=== PATIENT | female | born 1975 | race Caucasian/White ===

== ENCOUNTER 2017-04-23 10:05 | Inpatient (IN) | payer MEDICAID, OTHER ==
[~2017-04-23] VITALS: Ht 157.5 cm; Wt 64.0 kg
--- NOTE | 2017-04-23 12:08 | ERD ---
ER Documentation Chief Complaint Date/Time DATE: 04/23/17 TIME: 12:03 Chief Complaint left lower ap w/ nausea x 3 days; intermittent fevelr (JUDYJUANJOCAROLINAKALEIGH Tj) HPI 42-year-old female who presents emergency department for left lower abdominal pain started 3 days ago but got worse today. Associated but no vomiting. Also complains of fever at home but did not take her temperature. Denies headache, dizziness, blurred vision, neck pain, shoulder pain, chest pain , back pain, vomiting, diarrhea, constipation, urinary symptoms, , possibility of being , recent travel, recent exposure to illness, recent antibiotic use in the last 3 months. No known drug allergies. Past medical history: None. Surgical history of 2. Medications: Robitussin. 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 Denies smoking, use of alcohol, use of illegal drugs. LMP was 3 weeks ago. A0. (LUCIEN VARGAS F) ROS All systems reviewed and are negative except as per history of present illness. (LUCIEN VARGAS F) Medications Home Meds Active Scripts Cephalexin* (Keflex*) 500 Mg Capsule, 500 MG PO QID for 5 Days, CAP Prov:ROCIOAAMIRBANCAROLINAAR F 04/23/17 Tramadol HCl (Tramadol HCl) 50 Mg Tablet, 50 MG PO Q4 Y for PAIN, #20 TAB Prov:PASILABANCAROLINAAR F 04/23/17 Acetaminophen* (Tylophen*) 500 Mg Capsule, 1 CAP PO Q6H Y for PAIN AND OR ELEVATED TEMP, #20 CAP Prov:LUCIEN VARGAS F 04/23/17 Ondansetron Hcl* (Zofran*) 4 Mg Tablet, 4 MG PO Q8H Y for NAUSEA AND/OR VOMITING , #30 TAB Prov:CAROLINA VARGASAR F 04/23/17 Ibuprofen* (Motrin*) 800 Mg Tab, 800 MG PO Q6H Y for PAIN AND OR ELEVATED TEMP, #20 TAB Prov:ROCIOILABANCAROLINAAR F 04/23/17 Allergies Allergies: Coded Allergies: No Known Allergy (Unverified , 04/23/17) Physical Exam Vitals Vital Signs Date Time Temp Pulse Resp B/P Pulse Ox O2 Delivery O2 Flow Rate FiO2 04/23/17 18:35 98.6 82 18 105/53 100 Room Air 04/23/17 10:44 98.7 90 18 117/58 100 (ADRIANA LEPE MD) Physical Exam Const: [] Head: Atraumatic Eyes: Normal Conjunctiva ENT: Normal External Ears, Nose and Mouth. Neck: Full range of motion..~ No meningismus. Resp: Clear to auscultation bilaterally Cardio: Regular rate and rhythm, no murmurs Abd: Soft, non distended. Normal bowel sounds. Has right lower abdominal tenderness and light and deep palpation. Unable to jump due to right-sided abdominal pain. Has difficulty walking due to abdominal pain. Skin: No petechiae or rashes Back: No midline or flank tenderness Ext: No cyanosis, or edema Neur: Awake and alert Psych: Normal Mood and Affect (LUCIEN VARGAS) Result Diagram: 04/23/17 1255 04/23/17 1255 Results 24 hrs Laboratory Tests Test 04/23/17 12:55 White Blood Count 18.910^3/ul Red Blood Count 4.4810^6/ul Hemoglobin 13.1g/dl Hematocrit 41.1% Mean Corpuscular Volume 91.7fl Mean Corpuscular Hemoglobin 29.2pg Mean Corpuscular Hemoglobin Concent 31.9g/dl Red Cell Distribution Width 12.9% Platelet Count 11996^3/UL Mean Platelet Volume 9.7fl Neutrophils % 86.8% Lymphocytes % 8.3% Monocytes % 4.1% Eosinophils % 0.0% Basophils % 0.2% Nucleated Red Blood Cells % 0.0/100WBC Neutrophils # (Manual) 16.410^3/ul Lymphocytes # 1.610^3/ul Monocytes # 0.810^3/ul Eosinophils # 0.010^3/ul Basophils # 0.010^3/ul Nucleated Red Blood Cells # 0.010^3/ul Prothrombin Time 13.6Sec Prothrombin Time Ratio 1.1 INR International Normalized Ratio 1.04 Activated Partial Thromboplast Time 35.4Sec Urine Color YELLOW Urine Clarity SLIGHTLY CLOUDY Urine pH 7.0 Urine Specific [place] 1.017 Urine Ketones 1+mg/dL Urine Nitrite NEGATIVEmg/dL Urine Bilirubin NEGATIVEmg/dL Urine Urobilinogen 2+mg/dL Urine Leukocyte Esterase 1+To/ul Urine Microscopic RBC 2/HPF Urine Microscopic WBC 17/HPF Urine Squamous Epithelial Cells FEW/HPF Urine Hemoglobin 2+mg/dL Urine Glucose NEGATIVEmg/dL Urine Total Protein 1+mg/dl Sodium Level 137mmol/L Potassium Level 3.8mmol/L Chloride Level 103mmol/L Carbon Dioxide Level 22mmol/L Anion Gap 16 Blood Urea Nitrogen 6mg/dl Creatinine 0.71mg/dl Glucose Level 128mg/dl Calcium Level 9.5mg/dl Total Bilirubin 0.8mg/dl Direct Bilirubin 0.00mg/dl Indirect Bilirubin 0.8mg/dl Aspartate Amino Transf (AST/SGOT) 17IU/L Alanine Aminotransferase (ALT/SGPT) 23IU/L Alkaline Phosphatase 99IU/L Total Protein 8.6g/dl Albumin 4.4g/dl Globulin 4.20g/dl Albumin/Globulin Ratio 1.04 Amylase Level 92U/L Lipase 44U/L Serum HCG, Qualitative NEGATIVE Current Medications Medications (Trade) Dose Ordered Sig/David Route PRN Reason Start Time Stop Time Status Last Admin Dose Admin Ondansetron HCl (Zofran Inj) 4 mg ONCE STAT IV 04/23/17 12:11 04/23/17 12:13 DC 04/23/17 13:11 Ketorolac Tromethamine 30 mg 30 mg ONCE STAT IV 04/23/17 12:11 04/23/17 12:13 DC 04/23/17 13:12 Sodium Chloride 500 ml @ 500 mls/hr Q1H ONCE IV 04/23/17 12:30 04/23/17 13:29 DC 04/23/17 13:11 Sodium Chloride 500 ml @ 500 mls/hr Q1H ONCE IV 04/23/17 14:00 04/23/17 14:59 DC 04/23/17 14:00 Ceftriaxone Sodium (Rocephin) 50 ml @ 100 mls/hr ONCE ONCE IVPB 04/23/17 14:00 04/23/17 14:29 DC 04/23/17 14:00 IV Flush 10 ml 10 ml STK-MED ONCE .ROUTE 04/23/17 14:16 04/23/17 14:17 DC Sodium Chloride (NS) 100 ml @ ud STK-MED ONCE .ROUTE 04/23/17 14:16 04/23/17 14:17 DC Iohexol (Omnipaque 300mg/ ml) 150 ml STK-MED ONCE .ROUTE 04/23/17 14:16 04/23/17 14:17 DC Morphine Sulfate (morphine) 4 mg ONCE STAT IV 04/23/17 18:06 04/23/17 18:07 DC 04/23/17 18:39 Ondansetron HCl (Zofran Inj) 4 mg BRIDGE ORDER PRN IV NAUSEA AND/OR VOMITING 04/23/17 23:30 04/24/17 23:29 Acetaminophen (Tylenol Tab) 650 mg ER BRIDGE PRN PO MILD PAIN/FEVER 04/23/17 23:30 04/24/17 23:29 (ADRIANA LEPE MD) Procedures/MDM Examination: Please see physical examination. Disease process was explained to the patient and family member. They both agreed with the diagnostic test, treatment, plan of care. Treatment: IV insertion. Normal saline IV bolus. Zofran IV. Toradol IV. Morphine IV. Ceftriaxone IV. CT of the abdomen and pelvis with IV contrast: Impression: Multicystic left adnexal structure as noted above. Further evaluation with a pelvic ultrasound is recommended. Trace amount of free fluid in the pelvis which may be physiologic. Intrauterine device identified. Pelvic ultrasound Impression: The left ovary is not definitely identified although there is a 6.9 cm multiseptated lesion in the left adnexa with thickened vascular septations which correlates with a similarly sized lesion seen in the left adnexa on the CT study from the same date. Lesions of the sinuses are incompletely evaluated with ultrasound. An MRI of the pelvis without and with intravenous contrast is recommended for further evaluation. The right ovary is unremarkable. Appropriate position intrauterine device is noted. Urinalysis: Reviewed. Blood works: Leukocytosis. Differential diagnosis: Appendicitis versus cholecystitis versus pancreatitis versus diverticulitis versus nephrolithiasis versus pyelonephritis versus urinary tract infection Medical decision makin-year-old female who presents emergency department for left lower abdominal pain started 3 days ago but got worse today. Associated but no vomiting. Also complains of fever at home but did not take her temperature. Patient's complaint, patient's history about her complaint, my physical findings, diagnostic test results, reevaluation, consultation with supervising physician are consistent with my final diagnosis of ovarian cyst/ mass with unknown etiology. Medications prescribed are the following: Tramadol. Motrin. Tylenol. Zofran. Keflex. Patient and family member are made aware of the side effects and adverse reactions of the medications prescribed. Instructed on when to seek emergent and medical attention in case allergic/anaphylactic reactions or severe side effects and or adverse reactions to medications. Patient and family member verbalized understanding. Patient instructed Instructed to follow-up with his PCP in 24-48 hours. PCP to refer patient to clin nurse in the next 24-48 hours Instructed to Call 911 for chest pain, shortness of breath. Advised to come back here in ED as soon as possible for severity of symptoms which includes but not limited to: any new symptoms; shortness of breath/difficulty of breathing; cardiovascular changes; severe gastrointestinal symptoms; signs and symptoms of bleeding and or infection; signs of compartment syndrome/neurovascular changes; neurological changes/deficits. Patient and family member verbalized understanding. Upon discharge, patient is alert and oriented x 4, speaks full and clear sentences, denies pain, has no neurological deficits, has no neurovascular deficits, difficulty of breathing. Breathing even and unlabored. Lung sounds are clear to auscultation. Not in distress. Appears comfortable. Ambulatory with steady gait. Appears satisfied with care provided here in ED. (LUCIEN VARGAS) Patient seen in consultation for mid-level and agree with history and physical examination. Patient has a prolonged ED course for abnormalities noted on ultrasound and CT scan for possible ovarian cystic lesion of uncertain etiology associated with leukocytosis. MRI of the pelvis shows likely hydrosalpinx and IUD in the fundus. [facility] was consulted. Dr. Houston presented for evaluation of the patient at bedside. He suggested that the hydrosalpinx noted on MRI likely due to prolonged use of IUD which is been over 10 years. He is unable to locate the IUD string. Patient was given Rocephin IV. Patient will be admitted to [facility] for presumed operative removal of IUD and treatment of hydrosalpinx. Patient was stable throughout ED course.Cultures for gonorrhea and chlamydia pending. (ADRIANA LEPE MD) Departure Diagnosis: Primary Impression: Abdominal pain Additional Impressions: Lesion of ovary Hydrosalpinx PID (acute pelvic inflammatory disease) Condition: Stable LUCIEN VARGAS Apr 23, 2017 12:07 ADRIANA LEPE MD Apr 23, 2017 23:37
[2017-04-23] MEDS ORDERED: ONDANSETRON 4 MG INJ IV STA (12:11)
[2017-04-23] MEDS ORDERED: KETOROLAC 30 MG INJ IV STA (12:11)
[2017-04-23] MEDS ORDERED: SOD CHLORIDE 0.9% 500 ML IV ONE ×2 (12:30→14:00)
[2017-04-23 13:08] LABS: BASOPHILS % 0.2 % (0.0-2.0); HEMATOCRIT 41.1 % (37.0-47.0); HEMOGLOBIN 13.1 g/dl (12.0-16.0); LYMPHOCYTES # 1.6 10^3/ul (0.8-2.9); LYMPHOCYTES % 8.3 % (15.0-51.0); MEAN CORPUSCULAR HEMOGLOBIN 29.2 pg (29.0-33.0); MEAN CORPUSCULAR HGB CONC 31.9 g/dl (32.0-37.0); MEAN CORPUSCULAR VOLUME 91.7 fl (82.0-101.0); MEAN PLATELET VOLUME 9.7 fl (7.4-10.4); MONOCYTE # 0.8 10^3/ul (0.3-0.9); MONOCYTES % 4.1 % (0.0-11.0); NEUTROPHILS % 86.8 % (39.0-77.0); PLATELET COUNT 300 10^3/UL (140-415); RED BLOOD COUNT 4.48 10^6/ul (4.20-5.40); RED CELL DISTRIBUTION WIDTH 12.9 % (11.5-14.5); WHITE BLOOD COUNT 18.9 10^3/ul (4.8-10.8)
[2017-04-23 13:15] LABS: ADD UMIC YES; UR ASCORBIC ACID NEGATIVE (NEGATIVE); UR BILIRUBIN (Dip) NEGATIVE (NEGATIVE); UR BLOOD (Dip) 2+ mg/dL (NEGATIVE); UR CLARITY SLIGHTLY CLOUDY (CLEAR); UR COLOR YELLOW (YELLOW); UR GLUCOSE (Dip) NEGATIVE (NEGATIVE); UR KETONES (Dip) 1+ mg/dL (NEGATIVE); UR LEUKOCYTE ESTERASE (Dip) 1+ Leu/ul (NEGATIVE); UR NITRITE (Dip) NEGATIVE (NEGATIVE); UR RBC 2 /HPF (0-5); UR SPECIFIC GRAVITY (Dip) 1.017 (1.003-1.030); UR SQUAMOUS EPITHELIAL CELL FEW /HPF (FEW); UR TOTAL PROTEIN (Dip) 1+ mg/dl (NEGATIVE); UR UROBILINOGEN (Dip) 2+ mg/dL (NEGATIVE)
[2017-04-23 13:24] LABS: INR 1.04; PROTIME 13.6 Sec (12.2-14.2); PT RATIO 1.1
[2017-04-23 13:25] LABS: PARTIAL THROMBOPLASTIN TIME 35.4 Sec (25.0-35.0)
[2017-04-23 13:27] LABS: ALBUMIN 4.4 g/dl (3.3-4.9); ALBUMIN/GLOBULIN RATIO 1.04; BILIRUBIN,INDIRECT 0.8 mg/dl (0-1.1); BILIRUBIN,TOTAL 0.8 mg/dl (0.2-1.3); CALCIUM 9.5 mg/dl (8.4-10.2); CREATININE 0.71 mg/dl (0.44-1.00); POTASSIUM 3.8 mmol/L (3.5-5.1); TOTAL PROTEIN 8.6 g/dl (6.1-8.1)
[2017-04-23] MEDS ORDERED: CEFTRIAXONE 1 GM/50 ML (PMX) 50 ML IVPB ONE (14:00)
[2017-04-23] MEDS ORDERED: SOD CHLORIDE 0.9% 100 ML ONE (14:16)
[2017-04-23] MEDS ORDERED: IOHEXOL 300MG/ML 150 ML BTL ONE (14:16)
--- NOTE | 2017-04-23 15:13 | RADRPT ---
PROCEDURE: CT of the abdomen and pelvis CLINICAL INDICATION: Abdominal pain TECHNIQUE: The study was performed utilizing a [employer]peed 64-slice multidetector CT scanner. Dir ect spiral axial sections were obtained through the abdomen and pelvis with intravenous contrast. Af ter administration of 100cc of Omnipaque-300, postcontrast images were obtained. Coronal and sagitt al reformatted images were performed. The CTDI vol is 8.42 mGy and the DLP is 425.65 mGy-cm. The im ages were reviewed on a PACS workstation. One or more of the following dose reduction techniques were used: Automated exposure control. Adjustment of the mA and/or kV according to patient size. - Use of iterative reconstruction technique. COMPARISON: No prior studies are available for comparison. FINDINGS: CT abdomen: The lung bases are clear. The heart is not enlarged. No pericardial effusion is seen. The liver is normal in size and contour. No focal liver lesions or intrahepatic biliary dilatation is seen. The gallbladder is normal. No common bile duct dilatation is seen. The spleen, pancreas, a nd adrenal glands are unremarkable in appearance. The kidneys are normal in size and contour enhance normally. No evidence of hydronephrosis or nephrolithiasis is seen. The stomach is unremarkable. The small and large bowel are unremarkable in course and caliber. A n ormal appendix is identified. No enlarged lymph nodes or fluid collections are seen. The aorta is n ormal in caliber. CT pelvis: No pelvic mass, adenopathy, or focal fluid collection is seen. There is a trace amount of free fluid. The urinary bladder is normal. A intrauterine device is identified. A multicystic le ft adnexal structure is seen measuring approximately 4.2 x 5.1 x 2.7 cm in size. No osseous lesions are seen. IMPRESSION: 1. Multicystic left adnexal structure as noted above. Further evaluation with a pelvic ultrasound i s recommended. 2. Trace amount of free fluid in the pelvis which may be physiologic. 3. Intrauterine device identified. RPTAT: HPNM Physician Zohreh Date Time Electronically viewed and signed by Physician Zohreh on 04/23/2017 15:13 /
--- NOTE | 2017-04-23 16:29 | RADRPT ---
PROCEDURE: US Pelvis CLINICAL INDICATION: Pelvic pain TECHNIQUE: Multiple sonographic images of the pelvis were obtained utilizing a transabdominal and endovaginal technique. The images were reviewed on a PACS workstation. COMPARISON: CT abdomen/pelvis from the same date LMP: 04/09/2017 FINDINGS: The uterus measures 10.5 x 4.3 x 4.6 cm. The endometrial echo complex measures 8 mm in thickness. Several sub-centimeter Nabothian cysts are identified. An appropriately positioned intrauterine jet ce is noted. The right ovary measures 3.8 x 2.3 x 2.8 cm. There is normal vascular flow in the right ovary. The left ovary is not definitively identified although there is a 6.9 x 3.9 x 3.6 cm multi septated lesion in the left adnexa. Thickened septations are noted within it measuring up to 4 mm. Prominent vascular flow is noted in the septations. No significant pelvic free fluid is identified. IMPRESSION: The left ovary is not definitively identified although there is a 6.9 cm multi septated lesion in th e left adnexa with thickened vascular septations which correlates with the similarly sized lesions s een in the left adnexa on the CT study from the same date. Lesions of this size are incompletely john luated with ultrasound. An MRI of the pelvis without and with intravenous contrast is recommended fo r further evaluation. The right ovary is unremarkable. An appropriately positioned intrauterine device is noted. RPTAT: EE Physician Yeyo Date Time Electronically viewed and signed by Physician Yeyo on 04/23/2017 16:29 /
[2017-04-23] MEDS ORDERED: morphine 4 MG/ML VIAL IV STA (18:06)
[2017-04-23] MEDS ORDERED: IBUP800T25 PO (18:26)
[2017-04-23] MEDS ORDERED: ACET500C5 PO (18:26)
[2017-04-23] MEDS ORDERED: ONDA4TAB8 PO (18:26)
[2017-04-23] MEDS ORDERED: TRAM50TA2 PO (18:27)
[2017-04-23] MEDS ORDERED: CEPH-443 PO (18:27)
[2017-04-23 18:35] VITALS: TEMP 98.6
--- NOTE | 2017-04-23 22:03 | RADRPT ---
PROCEDURE: MR pelvis with and without contrast CLINICAL INDICATION: Pelvic pain/abdominal pain, history of 2 sections TECHNIQUE: MRI of the pelvis with and without contrast was performed. 10 cc of Magnevist was injec mango intravenously. COMPARISON: Pelvic ultrasound and CT abdomen and pelvis of 04/23/2017 FINDINGS: Uterus measures 10.9 x 5.4 x 4.7 cm. Nabothian cysts in the cervix. Intrauterine device in endometri um in the fundus and body. There are 2 oval areas of decreased T2 signal consistent with fibroids th e larger a 1.2 cm intramural fibroid in the posterior fundus. Immediately medial to the left ovary i s an approximate 7.7 x 3.6 x 3.6 cm dilated tubular appearing fluid signal structure which appears t o most likely represent a hydrosalpinx. The left ovary measures 3.8 x 2.3 x 1.8 cm and appears to be unremarkable. The right ovary is unremarkable and measures approximately 4.5 x 2.2 x 2.4 cm. There is a small amount of free fluid in cul-de-sac. IMPRESSION: Dilated tubular appearing fluid density structure in left adnexal region thought to most likely repr esent a hydrosalpinx. Intrauterine device in endometrium in the fundus and body of the uterus. Consi stent with 2 small uterine fibroids. Small amount of free fluid in cul-de-sac. Please see above. RPTAT: HJES .Raji Strong MD, Date Time Electronically viewed and signed by .Raji Strong MD, on 04/23/2017 22:02 .S/
[2017-04-23] MEDS ORDERED: ACETAMINOPHEN 325 MG TAB PO PRN (23:30)
[2017-04-23] MEDS ORDERED: ONDANSETRON 4 MG INJ IV PRN (23:30)
--- NOTE | 2017-04-23 23:34 | HP ---
Date/Time of Note Date/Time of Note DATE: 04/23/17 TIME: 23:26 Assessment/Plan VTE Prophylaxis VTE Prophylaxis Intervention: ambulation Lines/Catheters IV Catheter Type (from Nrs): Peripheral IV Assessment/Plan Chief Complaint/Hosp Course pelvic pain IUD x 11 years Problems: Assessment/Plan PID Hydrosalpinx Admit IV antibiotics HPI/ROS Admit Date/Time Admit Date/Time Hx of Present Illness 42 y/o LMP 2 weeks prior to admission with c/o 3 day h/o LLQ pain associated with vaginal discharge. ROS Constitutional: febrile ENT: no complaints Respiratory: no complaints Cardiovascular: no complaints Gastrointestinal: no complaints Genitourinary: discharge Musculoskeletal: no complaints Skin: no complaints Neurologic: no complaints Endocrine: no complaints Lymphatic: no complaints Psychological: nl mood/affect, no complaints Immunologic: no complaints PMH/Family/Social Past Medical History Medical History: no pertinent history Past Surgical History Past Surgical Hx: other (c/s x2) Family History Significant Family History: diabetes Social History Alcohol Use: none Drug Use: none Exam/Review of Systems Vital Signs Vitals Vital Signs Date Time Temp Pulse Resp B/P Pulse Ox O2 Delivery O2 Flow Rate FiO2 04/23/17 18:35 98.6 82 18 105/53 100 Room Air Exam Constitutional: alert Psych: no complaints Head: atraumatic, normocephalic Eyes: EOMI, PERRL, nl conjunctiva, nl lids, nl sclera ENMT: nl external ears & nose, nl lips & teeth, nl nasal mucosa & septum Neck: non-tender, supple Respiratory: clear to auscultation, normal air movement Cardiovascular: nl pulses, regular rate and rhythm Gastrointestinal: nl liver, spleen, non-tender, soft Genitourinary - Female: CMT, nl external genitalia Musculoskeletal: nl extremities to inspection Extremities: normal pulses Neurological: ASSISTANCE COORDINATOR II-XII intact, nl mental status, nl speech, nl strength Skin: nl turgor, No rash or lesions Lymph: nl lymph nodes Labs Result Diagram: 04/23/17 1255 04/23/17 1255 STERLING LIMON MD Apr 23, 2017 23:34
[2017-04-24 01:26] VITALS: Ht 157.5 cm; Wt 64.0 kg
[2017-04-24 01:34] VITALS: BP 106/59; PULSE 96; RESP 18
[2017-04-24] MEDS: SOD CHLORIDE 0.9% 1,000 ML IV SCH ×3 (02:05→18:23)
[2017-04-24 08:22] VITALS: BP 107/54; RESP 17
[2017-04-24] MEDS: DOXYCYCLINE 100 MG TAB PO SCH ×2 (08:38→20:43)
[2017-04-24] MEDS: metroNIDAZOLE 500 MG TAB PO SCH ×2 (08:39→20:43)
[2017-04-24] MEDS ORDERED: CEFTRIAXONE 1 GM/50 ML (PMX) 50 ML IVPB SCH (09:00)
[2017-04-24] MEDS: morphine 2 MG INJ IV PRN ×2 (10:52→18:30)
[2017-04-24 13:49] VITALS: BP 124/61; RESP 18
[2017-04-24 15:18] LABS: BASOPHILS % 0.2 % (0.0-2.0); EOSINOPHILS # 0.1 10^3/ul (0.0-0.5); EOSINOPHILS % 0.4 % (0.0-7.0); HEMATOCRIT 35.8 % (37.0-47.0); HEMOGLOBIN 11.9 g/dl (12.0-16.0); LYMPHOCYTES # 1.4 10^3/ul (0.8-2.9); MEAN CORPUSCULAR HEMOGLOBIN 30.8 pg (29.0-33.0); MEAN CORPUSCULAR HGB CONC 33.2 g/dl (32.0-37.0); MEAN CORPUSCULAR VOLUME 92.7 fl (82.0-101.0); MEAN PLATELET VOLUME 9.6 fl (7.4-10.4); MONOCYTES % 5.4 % (0.0-11.0); NEUTROPHILS % 85.4 % (39.0-77.0); PLATELET COUNT 272 10^3/UL (140-415); RED BLOOD COUNT 3.86 10^6/ul (4.20-5.40); RED CELL DISTRIBUTION WIDTH 12.4 % (11.5-14.5); WHITE BLOOD COUNT 17.5 10^3/ul (4.8-10.8)
--- NOTE | 2017-04-24 20:32 | PN ---
Date/Time of Note Date/Time of Note DATE: 04/24/17 TIME: 20:17 OB Subjective Subjective Subjective Denies any fever or chills. Feels improvement of her symptoms. has good apetite.Has not been eating yet,. Has appetite. Patient reports had her ParaGard IUD was placed about 10 years ago at [facility] Per history symptoms started with lower abdominal pain 3 days ago and low-grade fever, worsened yesterday when she presented to the hospital. Patient apparently had a trial of IUD removal by Dr. Houston yesterday that was unsuccessful. OB Objective Objective Objective Gait: Alert and oriented 4 does not appear to be in any acute distress. Abdomen: Soft, moderate tenderness in the left lower abdomen. Slight rebound tenderness in the left lower however the abdomen is soft and no evidence of guarding or rigidity or acute abdomen. Extremities: No calf tenderness, no click no edema Pelvix examination performed: The speculum examination there is moderate amount of yellow/green tinged vaginal discharge Culture obtained IUD string was not visible. Cervix appears to be normal without any abnormal lesion Bimaanual examination: This appears to be normal size there is tenderness in the left adnexa. Right adnexa nontender. No cervical motion tenderness noted Attempted to remove IUD after placing the speculum and cleansing the cervix using Betadine. a tenaculum was placed on the anterior lip of the cervix and it was grasped and with gentle pulling, Using a long bandage forceps gently passed through the external cervical os, could easily grab the IUD and was pulled gently and easily removed intact Slight from the IUD for actinomyces obtained and IUD was sent to the lab for culture for actinomycosis This is a send out She tolerated the procedure well Speculum was removed There was no bleeding from tenaculum site OB Assessment/Plan Other Assessment: Hospital day #1 Admitted for lower abdominal pain and left-sided multiseptated adnexal mass likely hydrosalpinx based on CT and ultrasound finding Increased vaginal discharge, consistent with PID Vaginal culture obtained Currently on ceftriaxone and doxycycline and Flagyl, mild Improvement of symptoms Retained IUD for 11 years. Smear of IUD and culture for actinomycosis ordered Antibiotics switched to ampicillin sulbactam, will continue doxycycline and Flagyl. 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 Needs to have a follow-up of culture. If confirmed actinomycosis may need additional treatment with penicillin as well as ID consultation, as well as follow-up imaging for confirm resolution of the left adnexal multicystic septated cyst it appears to be multiseptated cyst or hydrosalpinx based on imaging. Continue to follow while in the hospital If symptoms does not improve within 24-48 hours recommend ID consultation while the patient in the hospital and possible drainage of abscess. CARLOS RUBY MD Apr 24, 2017 20:32 CARLOS RUBY MD Apr 24, 2017 20:32
[2017-04-24 20:33] VITALS: BP 121/58; RESP 17
[2017-04-24] MEDS: AMPICILLIN/SULB 3 GM/NS (PMX) 100 ML IVPB SCH (20:41)
[2017-04-24 20:45] VITALS: BP 112/62; PULSE 90
[2017-04-25] VITALS (15 sets, daily range): BP systolic 90–144; BP diastolic 50–68; PULSE 76–133; RESP 17–22
[2017-04-25] MEDS: AMPICILLIN/SULB 3 GM/NS (PMX) 100 ML IVPB SCH (01:13)
[2017-04-25] MEDS: SOD CHLORIDE 0.9% 1,000 ML IV SCH ×4 (02:19→21:55)
[2017-04-25] MEDS ORDERED: LORAZEPAM 2 MG INJ ONE (03:01)
[2017-04-25] MEDS ORDERED: VANCOMYCIN 1 GM (PMX) 250 ML ONE (03:04)
[2017-04-25] MEDS ORDERED: LORAZEPAM 2 MG INJ IV ONE (03:06)
[2017-04-25] MEDS ORDERED: VANCOMYCIN 1 GM (PMX) 250 ML IVPB ONE (03:07)
[2017-04-25] MEDS: morphine 2 MG INJ IV PRN (04:02)
[2017-04-25] MEDS: ACETAMINOPHEN 325 MG TAB PO PRN ×2 (04:37→21:54)
--- NOTE | 2017-04-25 04:49 | RADRPT ---
PROCEDURE: US Pelvis. CLINICAL INDICATION: Pelvic pain, evaluate for abscess. LMP 04/09/2017 . IUD removed. TECHNIQUE: Multiple sonographic images of the pelvis were obtained utilizing a transabdominal and endovaginal technique. The images were reviewed on a PACS workstation. COMPARISON: 04/23/2017 FINDINGS: The uterus is visualized and measures 11.7 x 3.8 x 5.8 cm. The endometrial echo complex is normal a nd measures 4.1 mm. Intrauterine device is no longer present. There is no evidence for free fluid. T he right ovary measures 4.7 x 1.9 x 2.7 cm. There are multiple follicles in the right ovary. Normal Doppler flow is visualized in the right ovary. Enlarged left ovary with multiple cysts or complex c ystic adnexal mass is again demonstrated measuring 8.7 x 4.6 x 4.9 cm. Increased arterial venous julia w is demonstrated. IMPRESSION: Interval removal of the IUD. 8.7 cm complex cystic left adnexal mass or enlarged ovary with multiple cysts. Follow-up recommended . Physician Isaias Date Time Electronically viewed and signed by Physician Isaias on 04/25/2017 04:49 CS/
[2017-04-25] MEDS: metroNIDAZOLE 500 MG TAB PO SCH ×2 (08:50→20:29)
[2017-04-25] MEDS: DOXYCYCLINE 100 MG TAB PO SCH ×2 (08:50→20:29)
[2017-04-25] MEDS: MEROPENEM 500MG/50 ML (PMX) 50 ML IVPB SCH ×3 (08:51→21:54)
--- NOTE | 2017-04-25 18:28 | QN ---
Documentation Comment pt feeling better temp spike of 102 overnight no fevers since then exam wnl no ttp no gaurding a/p hydrosalpinx- but with fever over night- discussed case with dr galdamez who did not recommend drainage. will continue with IV abx since IUD is out and pt overall is improving RASHIDA HERNANDEZ MD Apr 25, 2017 18:28
[2017-04-26] VITALS (12 sets, daily range): BP systolic 103–126; BP diastolic 54–77; PULSE 77–97; RESP 15–18
[2017-04-26] MEDS: MEROPENEM 500MG/50 ML (PMX) 50 ML IVPB SCH ×3 (05:36→22:16)
[2017-04-26] MEDS: ACETAMINOPHEN 325 MG TAB PO PRN ×2 (05:36→20:11)
[2017-04-26] MEDS: metroNIDAZOLE 500 MG TAB PO SCH ×2 (09:43→20:11)
[2017-04-26] MEDS: DOXYCYCLINE 100 MG TAB PO SCH ×2 (09:43→20:11)
[2017-04-26] MEDS: SOD CHLORIDE 0.9% 1,000 ML IV SCH (09:44)
--- NOTE | 2017-04-26 13:13 | QN ---
Documentation Comment patient is seen at the bedside,Overall improving currently afebril VS stable Gen NAD abd soft NT ND Genitalai defeered --->close Observation --->continue Antibiotics KHADIJAH NAVAS M.D. Apr 26, 2017 13:13
[2017-04-27] VITALS (12 sets, daily range): BP systolic 105–125; BP diastolic 55–72; PULSE 69–104; RESP 15–20
[2017-04-27] MEDS: MEROPENEM 500MG/50 ML (PMX) 50 ML IVPB SCH ×3 (05:30→21:11)
--- NOTE | 2017-04-27 07:48 | QN ---
Documentation Comment #5 42 yo with left hydrosalpinx s/p IUD removal patient had a temp 102 yesterday she is currently on IV ABX WBC today 12.5 Abd soft NT/ND Ext NT A/P continue with ABX until afebrile for 48hrs RICARDO GUAMAN MD Apr 27, 2017 07:48
[2017-04-27] MEDS: DOXYCYCLINE 100 MG TAB PO SCH ×2 (09:50→21:11)
[2017-04-27] MEDS: metroNIDAZOLE 500 MG TAB PO SCH ×2 (09:50→21:11)
[2017-04-27 10:49] LABS: BASOPHIL # 0.1 10^3/ul (0.0-0.1); BASOPHILS % 0.4 % (0.0-2.0); EOSINOPHILS # 0.1 10^3/ul (0.0-0.5); HEMATOCRIT 40.4 % (37.0-47.0); HEMOGLOBIN 13.5 g/dl (12.0-16.0); LYMPHOCYTES # 1.5 10^3/ul (0.8-2.9); LYMPHOCYTES % 12.3 % (15.0-51.0); MEAN CORPUSCULAR HEMOGLOBIN 29.9 pg (29.0-33.0); MEAN CORPUSCULAR HGB CONC 33.4 g/dl (32.0-37.0); MEAN CORPUSCULAR VOLUME 89.4 fl (82.0-101.0); MEAN PLATELET VOLUME 9.4 fl (7.4-10.4); MONOCYTE # 0.8 10^3/ul (0.3-0.9); MONOCYTES % 6.1 % (0.0-11.0); NEUTROPHILS % 79.6 % (39.0-77.0); PLATELET COUNT 365 10^3/UL (140-415); RED BLOOD COUNT 4.52 10^6/ul (4.20-5.40); RED CELL DISTRIBUTION WIDTH 12.4 % (11.5-14.5); WHITE BLOOD COUNT 12.5 10^3/ul (4.8-10.8)
[2017-04-28] VITALS (9 sets, daily range): BP systolic 109–132; BP diastolic 53–75; PULSE 70–83; RESP 20
[2017-04-28] MEDS: MEROPENEM 500MG/50 ML (PMX) 50 ML IVPB SCH ×2 (05:30→13:58)
[2017-04-28] MEDS: metroNIDAZOLE 500 MG TAB PO SCH (08:56)
[2017-04-28] MEDS: DOXYCYCLINE 100 MG TAB PO SCH (08:56)
--- NOTE | 2017-04-28 10:36 | PD.PPDC ---
[facility] Discharge Instruction Follow-up Follow-up with Physician: 1, Week/Weeks Provider Information: please follow up with your obgyn in 1-2 weeks. you have a dilated left fallopian tube hydrosalpinx/pyosalpinx that was treated with IV antibiotics. you will need to take the rest of the antibiotics as prescribed. you IUD was removed and you need to use another form of control. RASHIDA HERNANDEZ MD Apr 28, 2017 10:36
--- NOTE | 2017-04-29 11:39 | DS ---
DATE OF ADMISSION: 04/24/2017 DATE OF DISCHARGE: 04/28/2017 DISCHARGE DIAGNOSES: 1. Pelvic inflammatory disease/tubo-ovarian abscess. 2. Intrauterine device removal. DISCHARGE CONDITION: Stable. HISTORY OF PRESENT ILLNESS/HOSPIAL COURSE: The patient is a 42- year-old who presented to the hospital complaining of abdominal pain. The patient had an IUD placed in for 11 years. The patient on examination was found to have PID and also an MRI was done which showed a 7-cm tubular structure in the left adnexal region likely representing a hydrosalpinx; however, the patient did have some tenderness and a fever, and the patient was admitted and started on IV broad-spectrum antibiotics. Cultures were also sent. During the course of her stay the patient had some fever, but over her stay and now on hospital day of discharge on 04/28/2017 the patient is doing well, tolerating p.o., is ambulating, is passing gas, has had a bowel movement. The patient has not any fevers for 48 hours. The patient has no complaints and is doing well. No abdominal pain. Microbiology shows no gonorrhea or chlamydia and normal vaginal arlet. The patient was given IV antibiotics. On discharge the patient was sent home on [____] for another 12 days. The patient is to follow up with her [employer] within 1 to 2 weeks. ER precautions given to return with any increased abdominal pain, fevers, chills or other complaints and again the patient was stable upon discharge. Upon discharge the patient's examination was within normal limits, heart regular rate and rhythm. [____]. Abdomen is soft and nontender, no rebound or guarding, and the extremities have no edema. Dictated By: Tashi Luke MD /vivien/raffaele /Document#: [id number]
== END 2017-04-28 17:25 | disposition home or self-care (01) | DRG 759 ==
LOC: FTE 10:05 → MS1 04-24 00:29 → TEL 04-25 03:22
PROVIDERS: ADMIT Obstetrics & Gynecology; ATTEND Obstetrics & Gynecology
PROC: 0UPDXHZ Removal of Contraceptive Device from Uterus and Cervix, External Approach (ICD-10-PCS; principal; 2017-04-27)
DX: N73.9 Female pelvic inflammatory disease, unspecified (principal); N70.11 Chronic salpingitis; Z97.5 Presence of (intrauterine) contraceptive device
CPT/HCPCS: 36415; 72197; 74177; 76830; 76856; 80053; 81001; 82150; 82962; 83690; 84703; 85025; 85610; 85730; 87070; 87081; 87086; 87210; 87591; 88312; 96374; 96375; J0295; J0696; J1885; J2060; J2185; J2270; J2405; J3370; J7030; J7040; Q9967